=== PATIENT | male | born 1930 | race American Indian/Alaskan Native ===

== ENCOUNTER 2019-12-06 01:43 | Emergency (ER) | payer MEDICARE ==
--- NOTE | 2019-12-06 02:30 | Emergency Department Report ---
ED Male HPI - General Chief complaint: Urogenital-Male Stated complaint: PAIN IN URINATING/BLOCKED Time Seen by Provider: 12/06/19 02:25 Source: patient Mode of arrival: Ambulatory Limitations: No Limitations - History of Present Illness Initial comments: Patient is an 89-year-old female that presents emergency room with complaints of difficulty urinating. Patient states she had a cystoscopy done yesterday and has been able to urinate since. Patient states that he is got blood coming from his penis. Patient denies any other pain. Patient states he is having a difficulty urinating. Patient states last time he urinated was 7 PM yesterday. Patient states that prior to not being able urinate he was having some burning when he urinated. MD Complaint: dysuria, other -: Sudden Radiation: none Severity: severe Severity scale (0 -10): 10 Quality: burning Consistency: constant Improves with: rest Worsens with: movement recent surgery urinary retention, blood in urine, dysuria. denies: discharge, swelling, mass, rash, fever, nausea/vomiting, incontinence - Related Data Home Medications Medication Instructions Recorded Confirmed Last Taken Amlodipine Besylate 1 tab PO DAILY 06/03/14 06/03/14 06/05/14 Doxazosin Mesylate 1 tab PO DAILY 06/03/14 06/03/14 06/05/14 Famotidine 1 tab PO DAILY 06/03/14 06/03/14 06/04/14 Insulin Aspart Protam & Aspart 10 units SC BID 06/03/14 06/03/14 06/04/14 [NovoLOG Mix 70-30 Flexpen] Metoprolol Tartrate 1 tab PO DAILY 06/03/14 06/03/14 06/05/14 Simvastatin 1 tab PO DAILY 06/03/14 06/03/14 06/04/14 lisinopriL [Lisinopril] 1 tab PO DAILY 06/03/14 06/03/14 06/05/14 Previous Rx's Medication Instructions Recorded Last Taken Type cephALEXin [Keflex] 500 mg PO Q8HR 7 Days #21 cap 12/06/19 Unknown Rx Allergies Allergy/AdvReac Type Severity Reaction Status Date / Time No Known Allergies Allergy Verified 06/05/14 07:16 ED Review of Systems ROS: Stated complaint: PAIN IN URINATING/BLOCKED Other details as noted in HPI Constitutional: denies: chills, fever Eyes: denies: eye pain, eye discharge, vision change ENT: denies: ear pain, throat pain Respiratory: denies: cough, shortness of breath, wheezing Cardiovascular: denies: chest pain, palpitations Endocrine: no symptoms reported Gastrointestinal: denies: abdominal pain, nausea, diarrhea Genitourinary: dysuria, hematuria. denies: urgency Musculoskeletal: denies: back pain, joint swelling, arthralgia Skin: denies: rash, lesions Neurological: denies: headache, weakness, paresthesias Psychiatric: denies: anxiety, depression Hematological/Lymphatic: denies: easy bleeding, easy bruising ED Past Medical Hx - Past Medical History Previous Medical History?: Yes Hx Hypertension: Yes Hx Diabetes: Yes Hx GERD: Yes Hx Renal Disease: Yes (ckd 3) Hx Arthritis: Yes Hx Asthma: No Hx COPD: No Additional medical history: prostate problem, high cholesterol, gout - Surgical History Past Surgical History?: Yes Additional Surgical History: prostate - Family History Family history: no significant - Social History Smoking Status: Never Smoker Substance Use Type: None - Medications Home Medications: Home Medications Medication Instructions Recorded Confirmed Last Taken Type Amlodipine Besylate 1 tab PO DAILY 06/03/14 06/03/14 06/05/14 History Doxazosin Mesylate 1 tab PO DAILY 06/03/14 06/03/14 06/05/14 History Famotidine 1 tab PO DAILY 06/03/14 06/03/14 06/04/14 History Insulin Aspart Protam & Aspart 10 units SC BID 06/03/14 06/03/14 06/04/14 History [NovoLOG Mix 70-30 Flexpen] Metoprolol Tartrate 1 tab PO DAILY 06/03/14 06/03/14 06/05/14 History Simvastatin 1 tab PO DAILY 06/03/14 06/03/14 06/04/14 History lisinopriL [Lisinopril] 1 tab PO DAILY 06/03/14 06/03/14 06/05/14 History cephALEXin [Keflex] 500 mg PO Q8HR 7 Days #21 cap 12/06/19 Unknown Rx ED Physical Exam - General Limitations: No Limitations General appearance: alert, in no apparent distress - Head Head exam: Present: atraumatic, normocephalic - Eye Eye exam: Present: normal appearance - ENT ENT exam: Present: mucous membranes moist - Neck Neck exam: Present: normal inspection - Respiratory Respiratory exam: Present: normal lung sounds bilaterally. Absent: respiratory distress - Cardiovascular Cardiovascular Exam: Present: regular rate, normal rhythm. Absent: systolic murmur, diastolic murmur, rubs, gallop - GI/Abdominal GI/Abdominal exam: Present: soft, normal bowel sounds - Rectal Rectal exam: Present: deferred - exam: Present: normal inspection External exam: Present: normal external exam - Extremities Exam Extremities exam: Present: normal inspection - Back Exam Back exam: Present: normal inspection - Neurological Exam Neurological exam: Present: alert, oriented X3 - Psychiatric Psychiatric exam: Present: normal affect, normal mood - Skin Skin exam: Present: warm, dry, intact, normal color. Absent: rash ED Course Vital Signs 12/06/19 12/06/19 12/06/19 01:55 02:31 02:45 Temperature 98.3 F Pulse Rate 112 H Respiratory 20 Rate Blood Pressure 219/95 172/81 O2 Sat by Pulse 98 98 96 Oximetry 12/06/19 12/06/19 12/06/19 03:00 03:15 03:31 Temperature Pulse Rate Respiratory Rate Blood Pressure 218/94 218/94 172/81 O2 Sat by Pulse 91 95 96 Oximetry 12/06/19 12/06/19 12/06/19 03:45 04:00 04:15 Temperature Pulse Rate Respiratory Rate Blood Pressure 172/81 218/94 170/86 O2 Sat by Pulse 98 94 94 Oximetry - Reevaluation(s) Reevaluation #1: Initial evaluation done. Patient had a Heredia placed and shows gross hematuria. Patient states he is already feeling better. 12/06/19 02:30 Reevaluation #2: I discussed all results and clinical findings with patient. I discussed plan of care with patient. Patient agrees with plan of care. Patient is stable for discharge. Patient will be discharged home. Patient given discharge instructions. Patient voiced understanding of discharge instructions. Patient states he is much more comfortable. Patient denies pain. Patient will be discharged with the Heredia. Heredia care discussed with patient. Son at bedside the entire time 12/06/19 04:43 ED Medical Decision Making - Lab Data Result diagrams: 12/06/19 02:46 12/06/19 02:46 - Radiology Data Radiology results: report reviewed - Medical Decision Making Patient is a 89-year-old male that presents emergency room with complaints of urinary retention and passing of blood in urine. Patient had a recent cystoscop y done by his urologist for urinary frequency. Patient had a CT done of the abdomen secondary to recent instrumentation of the bladder. Patient had a Heredia placed immediately upon arrival and instant relief. Patient had labs done and were unremarkable except for CKD for which the patient has a past medical history of kidney disease. Patient instructed to increase water. Patient will be discharged home with the Heredia catheter in place and need to follow-up with his urologist as soon as possible. - Differential Diagnosis Urinary retention, cystoscopy complication, hematuria, UTI Critical care attestation.: If time is entered above; I have spent that time in minutes in the direct care of this critically ill patient, excluding procedure time. ED Disposition Clinical Impression: Urinary retention, History of cystoscopy Hematuria Qualifiers: Hematuria type: gross Qualified Code(s): R31.0 - Gross hematuria Hypertension Qualifiers: Hypertension type: essential hypertension Qualified Code(s): I10 - Essential (primary) hypertension Disposition: TO HOME OR SELFCARE Is pt being admited?: No Does the pt Need Aspirin: No Condition: Stable Instructions: Urinary Retention in Men (ED), Heredia Catheter Placement and Care (ED), Acute Hematuria (ED), Urinary Leg Bag (GEN), Hypertension (ED) Additional Instructions: Patient to follow-up with primary care in 2 to 3 days. Patient to follow-up with urologist in 2 to 3 days and as soon as possible. Patient to rest. Patient to increase water. Patient to avoid strenuous exercise or heavy lifting until cleared by primary care or urologist. Patient to keep Heredia catheter in place until cleared by urologist. Patient to take Tylenol as needed for pain. Patient to take meds as directed. Patient to return to the ER if condition wor sens, changes or new symptoms arise. Prescriptions: cephALEXin [Keflex] 500 mg PO Q8HR 7 Days #21 cap Time of Disposition: 04:46
[2019-12-06 03:12] LABS: Hematocrit 40.6 % (35.5-45.6); Hemoglobin 13.3 gm/dl (11.8-15.2); Mean Corpuscular HGB Conc 33 % (32-34); Mean Corpuscular Volume 87 fl (84-94); Platelet Count 126 K/mm3 (140-440); Red Blood Count 4.68 M/mm3 (3.65-5.03); Red Cell Distribution Width 14.3 % (13.2-15.2)
--- NOTE | 2019-12-06 03:31 | Cat Scan Report ---
CT of the abdomen and pelvis without contrast INDICATION: Hematuria COMPARISON: None FINDINGS: Lung bases are clear. The liver, spleen, pancreas and adrenal glands are grossly normal. Mu ltiple renal cysts are seen some of which contain calcium. No kidney stones or hydronephrosis. Gallbl adder is contracted and contains stones. No biliary tree dilation. No fluid or adenopathy in the uppe r abdomen. There is 5.1 x 4.7 cm infrarenal aortic aneurysm without hemorrhage. No fluid or adenopath y in the upper abdomen. 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 Heredia catheter is in place. Hyperdensity is seen in the dependent portion of the bladder which may be hemorrhage. No ureteral stones are seen. No stone fragments seen in the bladder. No pelvic or inguinal adenopathy. There is ectasia of the co mmon iliac arteries without focal aneurysm. No definite skeletal metastases. IMPRESSION: Renal cysts without definite stone. Bladder may contain blood clot. Automated exposure control was utilized to diminish radiation dose. Signer Name: Uli Harley MD Signed: 12/06/2019 3:27 AM Workstation Name: [id number]
[2019-12-06 03:35] LABS: Albumin 4.3 g/dL (3.9-5)
[2019-12-06 03:58] LABS: Bilirubin,Urine NEG (Negative); Blood,Urine MOD (Negative); Calcium Oxalate Crystals,Urine 2+; Color,Urine Red (Yellow); Urobilinogen,Urine < 2.0 mg/dL (<2.0)
[2019-12-06 04:30] VITALS: BP 170/86
== END 2019-12-06 05:10 | disposition home or self-care (01) ==
LOC: ED 01:43
DX: R33.9 Retention of urine, unspecified (principal); R31.9 Hematuria, unspecified; I10 Essential (primary) hypertension; E11.9 Type 2 diabetes mellitus without complications; K21.9 Gastro-esophageal reflux disease without esophagitis; M10.9 Gout, unspecified; Z98.890 Other specified postprocedural states; Z87.448 Personal history of other diseases of urinary system; Z79.899 Other long term (current) drug therapy
CPT/HCPCS: 36415; 51702; 74176; 80053; 81001; 85027